=== PATIENT | female | born 1995 | race Caucasian/White ===

== ENCOUNTER 2020-09-11 01:57 | Inpatient (IN) | payer BC ==
[2020-09-11] MEDS ORDERED: Lidocaine 1% 50 ML MDV INJECT ONE (04:03)
[2020-09-11] MEDS ORDERED: Calcium Carbonate 500 MG Tab.Chew PO PRN (04:03)
[2020-09-11] MEDS ORDERED: Acetaminophen 325 MG Tab PO PRN (04:03)
[2020-09-11] MEDS ORDERED: Ondansetron 4 MG/2 ML SDV IVPUSH PRN (04:03)
[2020-09-11] MEDS ORDERED: Sodium Chloride 0.9% 10 ML Syringe FLUSH PRN (04:03)
[2020-09-11] MEDS ORDERED: Nalbuphine 10 MG/1 ML Vial IVPUSH PRN (04:03)
[2020-09-11] MEDS ORDERED: Oxytocin/Lactated Ringers 10 UNIT/1,000 ML BAG IV SCH ×2 (04:15)
--- NOTE | 2020-09-11 07:01 | PCM.LDHP ---
L&D History of Present Illness - General Date of Service: 09/11/20 Admit Problem/Dx: Patient Status Order with Admit Dx/Problem 09/11/20 01:59 Patient Status [ADT] Routine 09/11/20 04:04 Patient Status [ADT] Routine Admission Diagnosis/Problem Admission Diagnosis/Problem Active labor Source of Information: Patient History Limitations: Reports: No Limitations - History of Present Illness Introduction:: Patient is a 24 y/o at 39 1/7 wks. Patient presented overnight with worsening contractions. Made change from 3 to 4 cm. Now feels contractions are spacing somewhat. No other concerns - Related Data Allergies/Adverse Reactions: Allergies Allergy/AdvReac Type Severity Reaction Status Date / Time No Known Allergies Allergy Verified 09/11/20 02:00 Home Medications: Home Meds No122/Iron/Folic Acid [ Multi Tablet] 1 each PO DAILY 09/11/20 [History] Past Medical History Gastrointestinal History: Reports: Chronic Constipation, Other (See Below) Other Gastrointestinal History: Esophagitis, Rectal Fissures, Dysphagia MANAGER PHP History: Reports: : 1 Para: 0 LMP (Approximate): Musculoskeletal History: Reports: Other (See Below) Other Musculoskeletal History: Pelvic Floor Dysfunction, Congenital Hip Dysplasia Neurological History: Reports: Concussion Psychiatric History: Reports: Anxiety, Depression Dermatologic History: Reports: Other (See Below) Other Dermatologic History: Chronic Pruritis - Past Surgical History HEENT Surgical History: Reports: Adenoidectomy, Oral Surgery, Tonsillectomy GI Surgical History: Reports: EGD, Other (See Below) Other GI Surgeries/Procedures: Proctoplasty Stenosis, Sphincterotomy Social & Family History - Family History Family Medical History: No Pertinent Family History - Tobacco Use Tobacco Use Status *Q: Never Tobacco User Used Tobacco, but Quit: No - Alcohol Use Alcohol Use History: No - Recreational Drug Use Recreational Drug Use: No H&P Review of Systems - Review of Systems: Review Of Systems: See Below General: Reports: No Symptoms Pulmonary: Reports: No Symptoms Cardiovascular: Reports: No Symptoms Gastrointestinal: Reports: Abdominal Pain Genitourinary: Reports: No Symptoms Musculoskeletal: Reports: No Symptoms Psychiatric: Reports: No Symptoms L&D Exam - Exam Exam: See Below - Vital Signs Vital Signs: Last Vital Signs Temp 37.0 C 09/11/20 01:59 Pulse 80 09/11/20 01:59 Resp 16 09/11/20 01:59 BP 127/84 09/11/20 01:59 Pulse Ox 98 09/11/20 01:59 Weight: 75.659 kg - OB Specific Contraction Intensity: Moderate Movement: Active Heart Tones: Present Heart Tones per Min: 135 Heart Rate (FHR) Variability: Moderate (6-25 bmp) Presentation: Vertex - Florez Score Florez Score Cervix Position: Posterior Florez Score Consistency: Soft Florez Score Effacement: >80% Florez Score Dilation: 3-4 cm Florez Score Infant's Station: -2 Florez Score Total: 8 - Exam General: Alert, Oriented, Cooperative Lungs: Clear to Auscultation, Normal Respiratory Effort Cardiovascular: Regular Rate, Regular Rhythm GI/Abdominal Exam: Soft, Non-Tender Genitourinary: Normal external exam Extremities: Normal Inspection Skin: Warm, Dry, Intact - Patient Data Lab Results Last 24 hrs: Laboratory Results - last 24 hr 09/11/20 09/11/20 Range/Units 04:17 04:17 WBC 10.07 H (3.98-10.04) K/mm3 RBC 4.26 (3.98-5.22) M/mm3 Hgb 13.1 (11.2-15.7) gm/dl Hct 39.1 (34.1-44.9) % MCV 91.8 (79.4-94.8) fl MCH 30.8 (25.6-32.2) pg MCHC 33.5 (32.2-35.5) g/dl RDW Std Deviation 41.9 (36.4-46.3) fL Plt Count 168 L (182-369) K/mm3 MPV 11.7 (9.4-12.3) fl Neut % (Auto) 71.7 H (34.0-71.1) % Lymph % (Auto) 19.8 (19.3-51.7) % [place] % (Auto) 7.0 (4.7-12.5) % Eos % (Auto) 0.9 (0.7-5.8) Baso % (Auto) 0.2 (0.1-1.2) % Neut # (Auto) 7.23 H (1.56-6.13) K/mm3 Lymph # (Auto) 1.99 (1.18-3.74) K/mm3 [place] # (Auto) 0.70 H (0.24-0.36) K/mm3 Eos # (Auto) 0.09 (0.04-0.36) K/mm3 Baso # (Auto) 0.02 (0.01-0.08) K/mm3 Blood Type A POSITIVE Gel Antibody Screen Negative Result Diagrams: 09/11/20 04:17 - Problem List (1) 39 weeks gestation of SNOMED Code(s): 81105261 ICD Code: Z3A.39 - 39 WEEKS GESTATION OF Status: Acute Current Visit: Yes Problem List Initiated/Reviewed/Updated: Yes Orders Last 24hrs: Active Orders 24 hr Category Date Time Status Patient Status [ADT] Routine ADT 09/11/20 04:04 Active Activity as Tolerated [RC] PFP Care 09/11/20 04:03 Active Communication Order [RC] ASDIRECTED Care 09/11/20 04:03 Active Heart Tones [RC] ASDIRECTED Care 09/11/20 04:04 Active Notify Provider [RC] PFP Care 09/11/20 04:03 Active Notify Provider [RC] PRN Care 09/11/20 04:03 Active Peripheral IV Care [RC] . DIRECTED Care 09/11/20 04:04 Active Pump Management, Intrathecal [RC] ASDIRECTED Care 09/11/20 04:04 Active Urinary Catheter Assessment [RC] ASDIRECTED Care 09/11/20 04:03 Active Regular Diet [DIET] Diet 09/10/20 Dinner Active CORONAVIRUS COVID-19 CARLITO [MOLEC] Stat Lab 09/11/20 04:06 Ordered RAPID PLASMA REAGIN,RPR [CHEM] Stat Lab 09/11/20 04:17 Received Acetaminophen [TylenoL] Med 09/11/20 04:03 Active 650 mg PO Q4H PRN Calcium Carbonate [Tums] Med 09/11/20 04:03 Active 1,000 mg PO Q2H PRN Lactated Ringers [Ringers, Lactated] 1,000 ml Med 09/11/20 04:15 Active IV ASDIRECTED Nalbuphine [Nubain] Med 09/11/20 04:03 Active 10 mg IVPUSH Q2H PRN Ondansetron [Zofran] Med 09/11/20 04:03 Active 4 mg IVPUSH Q4H PRN Oxytocin/Lactated Ringers [Pitocin in LR 10 Units/1,000 Med 09/11/20 04:15 Act lidya ML] 10 unit in 1,000 ml IV .CONTINUOUS Oxytocin/Lactated Ringers [Pitocin in LR 10 Units/1,000 Med 09/11/20 04:15 Active ML] 10 unit in 1,000 ml IV TITRATE Sodium Chloride 0.9% [Saline Flush] Med 09/11/20 04:03 Active 10 ml FLUSH ASDIRECTED PRN Electronic Heart Tones Ext w TOCO [WOMSER] Ot 09/11/20 04:03 Ordered Routine Electronic Heart Tones Internal [WOMSER] Per Unit Ot 09/11/20 04:03 Ordered Routine Peripheral IV Insertion Adult [OM.PC] Routine Ot 09/11/20 04:03 Ordered Resuscitation Status Routine Resus Stat 09/11/20 01:59 Ordered Medication Orders Acetaminophen (Acetaminophen 325 Mg Tab) 650 mg PO Q4H PRN PRN Reason: Pain (Mild 1-3) and fever Calcium Carbonate/Glycine (Calcium Carbonate 500 Mg Tab.Chew) 1,000 mg PO Q2H PRN PRN Reason: Indigestion Lactated Ringer's (Ringers, Lactated) 1,000 mls @ 100 mls/hr IV ASDIRECTED FANTASMA Oxytocin/Lactated Ringer's (Pitocin In Lr 10 Units/1,000 Ml) 10 unit in 1,000 mls @ 12 mls/hr IV TITRATE FANTASMA; Protocol Oxytocin/Lactated Ringer's (Pitocin In Lr 10 Units/1,000 Ml) 10 unit in 1,000 mls @ 500 mls/hr IV .CONTINUOUS FANTASMA Nalbuphine HCl (Nalbuphine 10 Mg/1 Ml Vial) 10 mg IVPUSH Q2H PRN PRN Reason: Pain Ondansetron HCl (Ondansetron 4 Mg/2 Ml Sdv) 4 mg IVPUSH Q4H PRN PRN Reason: Nausea/Vomiting Sodium Chloride (Sodium Chloride 0.9% 10 Ml Syringe) 10 ml FLUSH ASDIRECTED PRN PRN Reason: Keep Vein Open Assessment/Plan Comment:: * Labs already done * GBS negative * Pain management per patient preference * Anticipate
[2020-09-11] MEDS: Lactated Ringers 1,000 ML IV SCH ×5 (13:20→21:53)
[2020-09-11] MEDS ORDERED: diphenhydrAMINE 50 MG/ML SDV IVPUSH PRN (14:41)
[2020-09-11] MEDS ORDERED: ePHEDrine 50 MG/ML SDV IVPUSH PRN (14:41)
[2020-09-11] MEDS: fentaNYL 100 MCG/2 ML SDV EPIDUR PRN ×2 (14:55→21:00)
[2020-09-11] MEDS: Bupivacaine/fentaNYL/NS 100 ML Bag EPIDUR PRN (14:56)
--- NOTE | 2020-09-11 15:15 | PCM.PREANE ---
Preanesthetic Assessment - Procedure Proposed Procedure: Labor epidural - Anesthesia/Transfusion/Family Hx Anesthesia History: Prior Anesthesia Without Reaction Family History of Anesthesia Reaction: No Transfusion History: No Prior Transfusion(s) Intubation History: Unknown - Review of Systems General: No Symptoms Pulmonary: No Symptoms Cardiovascular: No Symptoms Gastrointestinal: Abdominal Pain (uterine contractions), Other (No current dysphagia) Neurological: No Symptoms Other: Reports: Easy Bruising, Depression, Anxiety - Physical Assessment NPO Status Date: 09/11/20 NPO Status Time: 09:00 Vital Signs: Last Vital Signs Temp 98.6 F 09/11/20 01:59 Pulse 80 09/11/20 01:59 Resp 16 09/11/20 01:59 BP 127/84 09/11/20 01:59 Pulse Ox 98 09/11/20 01:59 Height: 1.57 m Weight: 75.659 kg ASA Class: 2 Mental Status: Alert & Oriented x3 Airway Class: Mallampati = 2 Dentition: Reports: Normal Dentition Thyro-Mental Finger Breadths: 3 Mouth Opening Finger Breadths: 3 ROM/Head Extension: Full Lungs: Clear to Auscultation, Normal Respiratory Effort Cardiovascular: Regular Rate, Regular Rhythm - Lab Values: Laboratory Last Values WBC 10.07 K/mm3 (3.98-10.04) H 09/11/20 04:17 RBC 4.26 M/mm3 (3.98-5.22) 09/11/20 04:17 Hgb 13.1 gm/dl (11.2-15.7) 09/11/20 04:17 Hct 39.1 % (34.1-44.9) 09/11/20 04:17 MCV 91.8 fl (79.4-94.8) 09/11/20 04:17 MCH 30.8 pg (25.6-32.2) 09/11/20 04:17 MCHC 33.5 g/dl (32.2-35.5) 09/11/20 04:17 RDW Std Deviation 41.9 fL (36.4-46.3) 09/11/20 04:17 Plt Count 168 K/mm3 (182-369) L 09/11/20 04:17 MPV 11.7 fl (9.4-12.3) 09/11/20 04:17 Neut % (Auto) 71.7 % (34.0-71.1) H 09/11/20 04:17 Lymph % (Auto) 19.8 % (19.3-51.7) 09/11/20 04:17 [place] % (Auto) 7.0 % (4.7-12.5) 09/11/20 04:17 Eos % (Auto) 0.9 (0.7-5.8) 09/11/20 04:17 Baso % (Auto) 0.2 % (0.1-1.2) 09/11/20 04:17 Neut # (Auto) 7.23 K/mm3 (1.56-6.13) H 09/11/20 04:17 Lymph # (Auto) 1.99 K/mm3 (1.18-3.74) 09/11/20 04:17 [place] # (Auto) 0.70 K/mm3 (0.24-0.36) H 09/11/20 04:17 Eos # (Auto) 0.09 K/mm3 (0.04-0.36) 09/11/20 04:17 Baso # (Auto) 0.02 K/mm3 (0.01-0.08) 09/11/20 04:17 Urine Color Yellow (Yellow) 09/11/20 12:17 Urine Appearance Clear (Clear) 09/11/20 12:17 Urine pH 7.0 (5.0-8.0) 09/11/20 12:17 Ur Specific [place] 1.020 (1.005-1.030) 09/11/20 12:17 Urine Protein Negative (Negative) 09/11/20 12:17 Urine Glucose (UA) Negative (Negative) 09/11/20 12:17 Urine Ketones Negative (Negative) 09/11/20 12:17 Urine Occult Blood Trace-lysed (Negative) H 09/11/20 12:17 Urine Nitrite Negative (Negative) 09/11/20 12:17 Urine Bilirubin Negative (Negative) 09/11/20 12:17 Urine Urobilinogen 0.2 (0.2-1.0) 09/11/20 12:17 Ur Leukocyte Esterase Negative (Negative) 09/11/20 12:17 Urine RBC 5-10 /hpf (0-5) H 09/11/20 12:17 Urine WBC 0-5 /hpf (0-5) 09/11/20 12:17 Ur Squamous Epith Cells 0-5 /hpf (0-5) 09/11/20 12:17 Urine Bacteria Few /hpf (FEW) 09/11/20 12:17 Urine Mucus Few /hpf (FEW) 09/11/20 12:17 SARS-CoV-2 RNA (CARLITO) Negative (NEGATIVE) 09/11/20 06:55 Blood Type A POSITIVE 09/11/20 04:17 Gel Antibody Screen Negative 09/11/20 04:17 Labs reviewed and acceptable to proceed - Allergies Allergies/Adverse Reactions: Allergies Allergy/AdvReac Type Severity Reaction Status Date / Time No Known Allergies Allergy Verified 09/11/20 02:00 - Blood Blood Available: Yes - Acknowledgements Anesthesia Type Planned: Epidural Pt an Appropriate Candidate for the Planned Anesthesia: Yes Alternatives and Risks of Anesthesia Discussed w Pt/Guardian: Yes Pt/Guardian Understands and Agrees with Anesthesia Plan: Yes PreAnesthesia Questionnaire Gastrointestinal History: Reports: Chronic Constipation, Other (See Below) Other Gastrointestinal History: Esophagitis, Rectal Fissures, Dysphagia Genitourinary History: Reports: UTI, Recurrent, Other (See Below) Other Genitourinary History: 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: Reports: Musculoskeletal History: Reports: Other (See Below) Other Musculoskeletal History: Pelvic Floor Dysfunction, Congenital Hip Dysplasia Neurological History: Reports: Concussion Other Neuro History: Insomnia, Seizures as a baby Psychiatric History: Reports: Anxiety, Depression Other Psychiatric History: Mood Disorder Endocrine/Metabolic History: Reports: Vitamin D Deficiency Dermatologic History: Reports: Other (See Below) Other Dermatologic History: Chronic Pruritis - Past Surgical History HEENT Surgical History: Reports: Adenoidectomy, Oral Surgery, Tonsillectomy GI Surgical History: Reports: EGD, Other (See Below) Other GI Surgeries/Procedures: Proctoplasty Stenosis, Sphincterotomy Dermatological Surgical History: Reports: Other (See Below) - SUBSTANCE USE Tobacco Use Status *Q: Never Tobacco User Tobacco Use Within Last Twelve Months: No Recreational Drug Use History: No - HOME MEDS Home Medications: Home Meds No122/Iron/Folic Acid [ Multi Tablet] 1 each PO DAILY 09/11/20 [History] - CURRENT (IN HOUSE) MEDS Current Meds: Current Medications Acetaminophen (Acetaminophen 325 Mg Tab) 650 mg PO Q4H PRN PRN Reason: Pain (Mild 1-3) and fever Calcium Carbonate/Glycine (Calcium Carbonate 500 Mg Tab.Chew) 1,000 mg PO Q2H PRN PRN Reason: Indigestion Diphenhydramine HCl (Diphenhydramine 50 Mg/Ml Sdv) 25 mg IVPUSH Q6H PRN PRN Reason: pruritis Ephedrine Sulfate (Ephedrine 50 Mg/Ml Sdv) 5 mg IVPUSH ASDIRECTED PRN PRN Reason: Hypotension Fentanyl (Fentanyl 100 Mcg/2 Ml Sdv) 100 mcg EPIDUR Q3H PRN PRN Reason: Pain Last Admin: 09/11/20 14:55 Dose: 100 mcg Documented by: Fentanyl/Bupivacaine HCl (Bupivacaine/Fentanyl/Ns 100 Ml Bag) 100 ml EPIDUR ASDIRECTED PRN PRN Reason: Pain Last Admin: 09/11/20 14:56 Dose: 100 ml Documented by: Lactated Ringer's (Ringers, Lactated) 1,000 mls @ 100 mls/hr IV ASDIRECTED FANTASMA Last Admin: 09/11/20 14:42 Dose: 100 mls/hr Documented by: Oxytocin/Lactated Ringer's (Pitocin In Lr 10 Units/1,000 Ml) 10 unit in 1,000 mls @ 12 mls/hr IV TITRATE FANTASMA; Protocol Oxytocin/Lactated Ringer's (Pitocin In Lr 10 Units/1,000 Ml) 10 unit in 1,000 mls @ 500 mls/hr IV .CONTINUOUS FANTASMA Nalbuphine HCl (Nalbuphine 10 Mg/1 Ml Vial) 10 mg IVPUSH Q2H PRN PRN Reason: Pain Ondansetron HCl (Ondansetron 4 Mg/2 Ml Sdv) 4 mg IVPUSH Q4H PRN PRN Reason: Nausea/Vomiting Sodium Chloride (Sodium Chloride 0.9% 10 Ml Syringe) 10 ml FLUSH ASDIRECTED PRN PRN Reason: Keep Vein Open Discontinued Medications Lidocaine HCl (Lidocaine 1% 50 Ml Mdv) 20 ml INJECT ONETIME ONE Stop: 09/11/20 04:04
--- NOTE | 2020-09-11 16:49 | PCM.PNLD ---
Labor Progress Note - VS & Meds Vital Signs: Last Vital Signs Temp 37.0 C 09/11/20 01:59 Pulse 80 09/11/20 01:59 Resp 16 09/11/20 01:59 BP 127/84 09/11/20 01:59 Pulse Ox 98 09/11/20 01:59 Active Medications: Current Medications Acetaminophen (Acetaminophen 325 Mg Tab) 650 mg PO Q4H PRN PRN Reason: Pain (Mild 1-3) and fever Calcium Carbonate/Glycine (Calcium Carbonate 500 Mg Tab.Chew) 1,000 mg PO Q2H PRN PRN Reason: Indigestion Diphenhydramine HCl (Diphenhydramine 50 Mg/Ml Sdv) 25 mg IVPUSH Q6H PRN PRN Reason: pruritis Ephedrine Sulfate (Ephedrine 50 Mg/Ml Sdv) 5 mg IVPUSH ASDIRECTED PRN PRN Reason: Hypotension Fentanyl (Fentanyl 100 Mcg/2 Ml Sdv) 100 mcg EPIDUR Q3H PRN PRN Reason: Pain Last Admin: 09/11/20 14:55 Dose: 100 mcg Documented by: Fentanyl/Bupivacaine HCl (Bupivacaine/Fentanyl/Ns 100 Ml Bag) 100 ml EPIDUR ASDIRECTED PRN PRN Reason: Pain Last Admin: 09/11/20 14:56 Dose: 100 ml Documented by: Lactated Ringer's (Ringers, Lactated) 1,000 mls @ 100 mls/hr IV ASDIRECTED FANTASMA Last Admin: 09/11/20 16:46 Dose: 100 mls/hr Documented by: Oxytocin/Lactated Ringer's (Pitocin In Lr 10 Units/1,000 Ml) 10 unit in 1,000 mls @ 12 mls/hr IV TITRATE FANTASMA; Protocol Last Titration: 09/11/20 16:46 Dose: 4 munits/min, 24 mls/hr Documented by: Oxytocin/Lactated Ringer's (Pitocin In Lr 10 Units/1,000 Ml) 10 unit in 1,000 mls @ 500 mls/hr IV .CONTINUOUS FANTASMA Nalbuphine HCl (Nalbuphine 10 Mg/1 Ml Vial) 10 mg IVPUSH Q2H PRN PRN Reason: Pain Ondansetron HCl (Ondansetron 4 Mg/2 Ml Sdv) 4 mg IVPUSH Q4H PRN PRN Reason: Nausea/Vomiting Sodium Chloride (Sodium Chloride 0.9% 10 Ml Syringe) 10 ml FLUSH ASDIRECTED PRN PRN Reason: Keep Vein Open Discontinued Medications Lidocaine HCl (Lidocaine 1% 50 Ml Mdv) 20 ml INJECT ONETIME ONE Stop: 09/11/20 04:04 - Uterine Contractions Uterine Monitoring Mode: External [place] Contraction Intensity: Moderate - Monitoring Monitor Mode: External Ultrasound Heart Rate (FHR) Baseline: 135 Heart Rate (FHR) Variability: Moderate (6-25 bmp) Accelerations: Present, 15x15 Decelerations: None Strip Review: Category I - Labor Progress (Free Text) Labor Progress: Doing well. Patient became tired with contractions and received epidural. Now being augmented with pitocin. Currently at 2. Continue to increase per protocol. Will reassess this PM.
--- NOTE | 2020-09-11 20:34 | PCM.PNLD ---
Labor Progress Note - VS & Meds Vital Signs: Last Vital Signs Temp 37.0 C 09/11/20 01:59 Pulse 80 09/11/20 01:59 Resp 16 09/11/20 01:59 BP 127/84 09/11/20 01:59 Pulse Ox 98 09/11/20 01:59 Active Medications: Current Medications Acetaminophen (Acetaminophen 325 Mg Tab) 650 mg PO Q4H PRN PRN Reason: Pain (Mild 1-3) and fever Last Admin: 09/11/20 18:23 Dose: 650 mg Documented by: Calcium Carbonate/Glycine (Calcium Carbonate 500 Mg Tab.Chew) 1,000 mg PO Q2H PRN PRN Reason: Indigestion Diphenhydramine HCl (Diphenhydramine 50 Mg/Ml Sdv) 25 mg IVPUSH Q6H PRN PRN Reason: pruritis Ephedrine Sulfate (Ephedrine 50 Mg/Ml Sdv) 5 mg IVPUSH ASDIRECTED PRN PRN Reason: Hypotension Fentanyl (Fentanyl 100 Mcg/2 Ml Sdv) 100 mcg EPIDUR Q3H PRN PRN Reason: Pain Last Admin: 09/11/20 14:55 Dose: 100 mcg Documented by: Fentanyl/Bupivacaine HCl (Bupivacaine/Fentanyl/Ns 100 Ml Bag) 100 ml EPIDUR ASDIRECTED PRN PRN Reason: Pain Last Admin: 09/11/20 14:56 Dose: 100 ml Documented by: Lactated Ringer's (Ringers, Lactated) 1,000 mls @ 100 mls/hr IV ASDIRECTED FANTASMA Last Admin: 09/11/20 16:46 Dose: 100 mls/hr Documented by: Oxytocin/Lactated Ringer's (Pitocin In Lr 10 Units/1,000 Ml) 10 unit in 1,000 mls @ 12 mls/hr IV TITRATE FANTASMA; Protocol Last Titration: 09/11/20 19:28 Dose: 10 munits/min, 60 mls/hr Documented by: Oxytocin/Lactated Ringer's (Pitocin In Lr 10 Units/1,000 Ml) 10 unit in 1,000 mls @ 500 mls/hr IV .CONTINUOUS FANTASMA Nalbuphine HCl (Nalbuphine 10 Mg/1 Ml Vial) 10 mg IVPUSH Q2H PRN PRN Reason: Pain Ondansetron HCl (Ondansetron 4 Mg/2 Ml Sdv) 4 mg IVPUSH Q4H PRN PRN Reason: Nausea/Vomiting Sodium Chloride (Sodium Chloride 0.9% 10 Ml Syringe) 10 ml FLUSH ASDIRECTED PRN PRN Reason: Keep Vein Open Discontinued Medications Lidocaine HCl (Lidocaine 1% 50 Ml Mdv) 20 ml INJECT ONETIME ONE Stop: 09/11/20 04:04 - Uterine Contractions Uterine Monitoring Mode: External [place] Contraction Intensity: Moderate - Monitoring Monitor Mode: External Ultrasound Heart Rate (FHR) Baseline: 130 Heart Rate (FHR) Variability: Moderate (6-25 bmp) Accelerations: Present, 15x15 Decelerations: None Strip Review: Category I - Vaginal Exam Dilation (cm): 5 Effacement (Percent): 80 Station: -1 Cervical Position: Midposition - Labor Progress (Free Text) Labor Progress: Doing well. Pitocin at 10. AROM performed with release of scant amount blood tinged fluid
[2020-09-12] MEDS: Bupivacaine/fentaNYL/NS 100 ML Bag EPIDUR PRN
--- NOTE | 2020-09-12 01:38 | PCM.DEL ---
L & D Note - General Info Date of Service: 09/12/20 - Delivery Note Labor: Augmented by ARM, Augmented by Oxytocin Delivery Outcome: Livebirth Infant Delivery Method: Spontaneous Vaginal Delivery-Single Delivery Mode: Spontaneous Presentation: Right Occiput Anterior (TRENT) Nuchal Cord: None Anesthesia Type: Epidural Amniotic Fluid Description: Clear Episiotomy Type: None Laceration: 2nd Degree Suture type: Vicryl Suture size: 2-0 Placenta: Intact, Spontaneous Cord: 3 Vessels Estimated Blood Loss: 200 Resuscitation Needed: Yes : Bulb Syringe, Stimulated, Warmed, [place] Used, Warmer Used Delivery Comments (Free Text/Narrative):: Patient found to be complete and began pushing. With maternal pushing effort head delivered from an TRENT presentation. No nuchal cord present. With gentle downward traction shoulders and body delivered. placed on maternal abdomen. Cord clamped and cut. Cord blood obtained. placenta allowed time to separate and expelled intact. Inspection of perineum showed a 2nd degree which was repaired with a 2-0 Vicryl in the typical fashion - General Info Date of Service: 09/12/20 - Patient Data Vitals - Most Recent: Last Vital Signs Temp 37.0 C 09/11/20 01:59 Pulse 80 09/11/20 01:59 Resp 16 09/11/20 01:59 BP 127/84 09/11/20 01:59 Pulse Ox 98 09/11/20 01:59 Weight - Most Recent: 75.659 kg I&O - Last 24 Hours: Intake & Output 09/11/20 09/11/20 09/12/20 14:59 22:59 06:59 Intake Total 1000 1999 Output Total Balance 1000 2015 - Exam Urinary Catheter Total Time: 0Days 0Hours - Problem List & Annotations (1) 39 weeks gestation of SNOMED Code(s): 44651796 Code(s): Z3A.39 - 39 WEEKS GESTATION OF Status: Acute Current Visit: Yes (2) Vaginal delivery SNOMED Code(s): 833398834 Code(s): O80 - ENCOUNTER FOR FULL-TERM UNCOMPLICATED DELIVERY Status: Acute Current Visit: Yes - Problem List Review Problem List Initiated/Reviewed/Updated: Yes - Assessment Assessment:: PPD#0 - Plan Plan:: * Routine cares * Breast feeding * Discharge home in 1-2 days
[2020-09-12] MEDS ORDERED: Benzocaine/Menthol 20%-0.5% Spray 56 GM Canister TOP PRN (02:38)
[2020-09-12] MEDS ORDERED: Witch Hazel Medicated Pads 40/Jar TOP PRN (02:38)
[2020-09-12] MEDS: Docusate Sodium 100 MG Cap PO PRN (03:16)
[2020-09-12] MEDS: Ibuprofen 600 MG Tab PO PRN ×3 (03:16→16:46)
[2020-09-12] MEDS ORDERED: Lidocaine 1.5% with EPINEPHrine 1:200,000 5 ML Amp ONE (04:00)
[2020-09-12] MEDS ORDERED: Bupivacaine 0.25% 10 ML SDV ONE (04:00)
--- NOTE | 2020-09-12 08:15 | PCM48HPAN ---
Post Anesthesia Note - EVALUATION WITHIN 48HRS OF ANESTHETIC Vital Signs in Normal Range: Yes Patient Participated in Evaluation: Yes Respiratory Function Stable: Yes Airway Patent: Yes Cardiovascular Function Stable: Yes Hydration Status Stable: Yes Pain Control Satisfactory: Yes Nausea and Vomiting Control Satisfactory: Yes Mental Status Recovered: Yes Vital Signs: Last Vital Signs Temp 37.0 C 09/11/20 01:59 Pulse 80 09/11/20 01:59 Resp 16 09/11/20 01:59 BP 127/84 09/11/20 01:59 Pulse Ox 98 09/11/20 01:59
[2020-09-12] MEDS: Acetaminophen 325 MG Tab PO PRN (20:49)
--- NOTE | 2020-09-13 06:50 | PCM.PNPP ---
- General Info Date of Service: 09/13/20 Functional Status: Reports: Pain Controlled, Tolerating Diet, Ambulating, Urinating - Review of Systems General: Reports: No Symptoms Pulmonary: Reports: No Symptoms Cardiovascular: Reports: No Symptoms Gastrointestinal: Reports: No Symptoms Genitourinary: Reports: No Symptoms Musculoskeletal: Reports: No Symptoms Neurological: Reports: No Symptoms - General Info Date of Service: 09/13/20 - Patient Data Vital Signs - Most Recent: Last Vital Signs Temp 36.4 C 09/13/20 03:35 Pulse 54 L 09/13/20 03:35 Resp 16 09/13/20 03:35 BP 117/91 H 09/13/20 03:35 Pulse Ox 97 09/13/20 03:35 Weight - Most Recent: 75.659 kg I&O - Last 24 Hours: Intake & Output 09/12/20 09/12/20 09/13/20 14:59 22:59 06:59 Intake Total 60 Output Total Balance 76 Med Orders - Current: Current Medications Acetaminophen (Acetaminophen 325 Mg Tab) 650 mg PO Q4H PRN PRN Reason: mild pain or fever Last Admin: 09/12/20 20:49 Dose: 650 mg Documented by: Benzocaine/Menthol (Benzocaine/Menthol 20%-0.5% [place] 56 Gm Canister) 0 gm TOP ASDIRECTED PRN PRN Reason: Perineal Comfort Measure Last Admin: 09/12/20 03:17 Dose: 1 canister Documented by: Docusate Sodium (Docusate Sodium 100 Mg Cap) 100 mg PO BID PRN PRN Reason: Constipation Last Admin: 09/12/20 03:16 Dose: 100 mg Documented by: Ibuprofen (Ibuprofen 600 Mg Tab) 600 mg PO Q6H PRN PRN Reason: Mild pain or fever Last Admin: 09/12/20 16:46 Dose: 600 mg Documented by: Cristin Toroel (Witch Lianne Medicated Pads 40/Jar) 1 pad TOP ASDIRECTED PRN PRN Reason: Perineal Comfort Measure Last Admin: 09/12/20 03:17 Dose: 1 tub Documented by: Discontinued Medications Acetaminophen (Acetaminophen 325 Mg Tab) 650 mg PO Q4H PRN PRN Reason: Pain (Mild 1-3) and fever Last Admin: 09/11/20 18:23 Dose: 650 mg Documented by: Bupivacaine HCl (Bupivacaine 0.25% 10 Ml Sdv) 20 ml .ROUTE .STK-MED ONE Stop: 09/12/20 04:01 Calcium Carbonate/Glycine (Calcium Carbonate 500 Mg Tab.Chew) 1,000 mg PO Q2H PRN PRN Reason: Indigestion Diphenhydramine HCl (Diphenhydramine 50 Mg/Ml Sdv) 25 mg IVPUSH Q6H PRN PRN Reason: pruritis Ephedrine Sulfate (Ephedrine 50 Mg/Ml Sdv) 5 mg IVPUSH ASDIRECTED PRN PRN Reason: Hypotension Fentanyl (Fentanyl 100 Mcg/2 Ml Sdv) 100 mcg EPIDUR Q3H PRN PRN Reason: Pain Last Admin: 09/11/20 21:00 Dose: 100 mcg Documented by: Fentanyl/Bupivacaine HCl (Bupivacaine/Fentanyl/Ns 100 Ml Bag) 100 ml EPIDUR ASDIRECTED PRN PRN Reason: Pain Last Admin: 09/12/20 00:00 Dose: 100 ml Documented by: Lactated Ringer's (Ringers, Lactated) 1,000 mls @ 100 mls/hr IV ASDIRECTED FANTASMA Last Admin: 09/11/20 21:53 Dose: 100 mls/hr Documented by: Oxytocin/Lactated Ringer's (Pitocin In Lr 10 Units/1,000 Ml) 10 unit in 1,000 mls @ 12 mls/hr IV TITRATE FANTASMA; Protocol Last Titration: 09/11/20 19:28 Dose: 10 munits/min, 60 mls/hr Documented by: Oxytocin/Lactated Ringer's (Pitocin In Lr 10 Units/1,000 Ml) 10 unit in 1,000 mls @ 500 mls/hr IV .CONTINUOUS FANTASMA Last Admin: 09/12/20 02:32 Dose: 500 mls/hr Documented by: Lidocaine HCl (Lidocaine 1% 50 Ml Mdv) 20 ml INJECT ONETIME ONE Stop: 09/11/20 04:04 Last Admin: 09/12/20 02:33 Dose: Not Given Documented by: Lidocaine/Epinephrine (Lidocaine 1.5% With Epinephrine 1:200,000 5 Ml Amp) 5 ml .ROUTE .STK-MED ONE Stop: 09/12/20 04:01 Nalbuphine HCl (Nalbuphine 10 Mg/1 Ml Vial) 10 mg IVPUSH Q2H PRN PRN Reason: Pain Ondansetron HCl (Ondansetron 4 Mg/2 Ml Sdv) 4 mg IVPUSH Q4H PRN PRN Reason: Nausea/Vomiting Sodium Chloride (Sodium Chloride 0.9% 10 Ml Syringe) 10 ml FLUSH ASDIRECTED PRN PRN Reason: Keep Vein Open - Interaction Disposition, : in Room with Family Infant Interaction: Holding Infant Feeding: Attempted ; Nursed Fair/Poor Support Person: Significant Other - Recovery Exam Fundal Tone: Firm Fundal Level: 1 Fingerbreadths Below Umbilicus Fundal Placement: Midline Lochia Amount: Small Lochia Color: Rubra/Red Perineum Description: Other (see below) Other Perinuem Description: 1st degree laceration with repair Episiotomy/Laceration: Approximated Bladder Status: Voiding Urinary Elimination: Voided - Exam General: Alert, Oriented, Cooperative GI/Abdominal Exam: Soft, Non-Tender Extremities: Normal Inspection - Problem List & Annotations (1) 39 weeks gestation of SNOMED Code(s): 64561969 Code(s): Z3A.39 - 39 WEEKS GESTATION OF Status: Acute Current Visit: Yes (2) Vaginal delivery SNOMED Code(s): 385016132 Code(s): O80 - ENCOUNTER FOR FULL-TERM UNCOMPLICATED DELIVERY Status: Acute Current Visit: Yes - Problem List Review Problem List Initiated/Reviewed/Updated: Yes - My Orders Last 24 Hours: My Active Orders 09/12/20 Breakfast Regular Diet [DIET] 09/13/20 02:38 Heat Therapy [OM.PC] PRN - Assessment Assessment:: PPD#1 - Plan Plan:: * Routine cares * Continue to work on breast feeding. Saw rn lactation consultant yesterday. * Discharge home tomorrow
[2020-09-13] MEDS: Docusate Sodium 100 MG Cap PO PRN ×2 (09:52→22:08)
[2020-09-13] MEDS: Ibuprofen 600 MG Tab PO PRN (09:52)
[2020-09-13] MEDS: Acetaminophen 325 MG Tab PO PRN (22:06)
--- NOTE | 2020-09-14 01:01 | PCM.DCSUM1 ---
Discharge Summary - Discharge Data Discharge Date: 09/14/20 Discharge Disposition: Home, Self-Care 01 Condition: Good - Referral to Home Health Primary Care Physician: Millie Patel MD - Discharge Diagnosis/Problem(s) (1) 39 weeks gestation of SNOMED Code(s): 02315958 ICD Code: Z3A.39 - 39 WEEKS GESTATION OF Status: Acute Current Visit: Yes (2) Vaginal delivery SNOMED Code(s): 732486868 ICD Code: O80 - ENCOUNTER FOR FULL-TERM UNCOMPLICATED DELIVERY Status: Acute Current Visit: Yes - Patient Summary/Data Complications: None Consults: None Recommended Follow-up Testing/Procedures: Follow up in 3 weeks for check Hospital Course: 24 y/o at 39 1/7 wks presented in early labor. Was augmented with pitocin/AROM. Progressed well to complete dilation and underwent an uncomplicated . See delivery note. did well and was discharged home on PPD#2 - Patient Instructions Diet: Regular Diet as Tolerated Activity: As Tolerated Activity, Other: pelvic rest for 6 weeeks Driving: May Drive Today Showering/Bathing: May Shower Notify Provider of: Fever, Increased Pain, Swelling and Redness, Drainage, Nausea and/or Vomiting - Discharge Plan *PRESCRIPTION DRUG MONITORING PROGRAM REVIEWED*: No *COPY OF PRESCRIPTION DRUG MONITORING REPORT IN PATIENT SAMEER: No Home Medications: Home Meds No122/Iron/Folic Acid [ Multi Tablet] 1 each PO DAILY 09/11/20 [History] Docusate Sodium [Colace] 100 mg PO BID PRN cap 09/13/20 [Rx] Ibuprofen [Motrin] 600 mg PO Q6H PRN tablet 09/13/20 [Rx] Patient Handouts: and Tongue Tie, Care After Vaginal Delivery Referrals: Millie Patel MD [Primary Care Provider] - (3 weeks for check) - Discharge Summary/Plan Comment DC Time >30 min.: No - Patient Data Vitals - Most Recent: Last Vital Signs Temp 36.7 C 09/13/20 19:39 Pulse 64 09/13/20 19:39 Resp 16 09/13/20 19:39 BP 120/66 09/13/20 19:39 Pulse Ox 100 09/13/20 19:39 Weight - Most Recent: 75.659 kg I&O - Last 24 hours: Intake & Output 09/13/20 09/13/20 09/14/20 14:59 22:59 06:59 Intake Total 60 0 Balance 60 0 Med Orders - Current: Current Medications Acetaminophen (Acetaminophen 325 Mg Tab) 650 mg PO Q4H PRN PRN Reason: mild pain or fever Last Admin: 09/13/20 22:06 Dose: 650 mg Documented by: Benzocaine/Menthol (Benzocaine/Menthol 20%-0.5% [place] 56 Gm Canister) 0 gm TOP ASDIRECTED PRN PRN Reason: Perineal Comfort Measure Last Admin: 09/12/20 03:17 Dose: 1 canister Documented by: Docusate Sodium (Docusate Sodium 100 Mg Cap) 100 mg PO BID PRN PRN Reason: Constipation Last Admin: 09/13/20 22:08 Dose: 100 mg Documented by: Ibuprofen (Ibuprofen 600 Mg Tab) 600 mg PO Q6H PRN PRN Reason: Mild pain or fever Last Admin: 09/13/20 09:52 Dose: 600 mg Documented by: Cristin Abdalla (Cristin Abdalla Medicated Pads 40/Jar) 1 pad TOP ASDIRECTED PRN PRN Reason: Perineal Comfort Measure Last Admin: 09/12/20 03:17 Dose: 1 tub Documented by: Discontinued Medications Acetaminophen (Acetaminophen 325 Mg Tab) 650 mg PO Q4H PRN PRN Reason: Pain (Mild 1-3) and fever Last Admin: 09/11/20 18:23 Dose: 650 mg Documented by: Bupivacaine HCl (Bupivacaine 0.25% 10 Ml Sdv) 20 ml .ROUTE .STK-MED ONE Stop: 09/12/20 04:01 Calcium Carbonate/Glycine (Calcium Carbonate 500 Mg Tab.Chew) 1,000 mg PO Q2H PRN PRN Reason: Indigestion Diphenhydramine HCl (Diphenhydramine 50 Mg/Ml Sdv) 25 mg IVPUSH Q6H PRN PRN Reason: pruritis Ephedrine Sulfate (Ephedrine 50 Mg/Ml Sdv) 5 mg IVPUSH ASDIRECTED PRN PRN Reason: Hypotension Fentanyl (Fentanyl 100 Mcg/2 Ml Sdv) 100 mcg EPIDUR Q3H PRN PRN Reason: Pain Last Admin: 09/11/20 21:00 Dose: 100 mcg Documented by: Fentanyl/Bupivacaine HCl (Bupivacaine/Fentanyl/Ns 100 Ml Bag) 100 ml EPIDUR ASDIRECTED PRN PRN Reason: Pain Last Admin: 09/12/20 00:00 Dose: 100 ml Documented by: Lactated Ringer's (Ringers, Lactated) 1,000 mls @ 100 mls/hr IV ASDIRECTED FANTASMA Last Admin: 09/11/20 21:53 Dose: 100 mls/hr Documented by: Oxytocin/Lactated Ringer's (Pitocin In Lr 10 Units/1,000 Ml) 10 unit in 1,000 mls @ 12 mls/hr IV TITRATE FANTASMA; Protocol Last Titration: 09/11/20 19:28 Dose: 10 munits/min, 60 mls/hr Documented by: Oxytocin/Lactated Ringer's (Pitocin In Lr 10 Units/1,000 Ml) 10 unit in 1,000 mls @ 500 mls/hr IV .CONTINUOUS FANTASMA Last Admin: 09/12/20 02:32 Dose: 500 mls/hr Documented by: Lidocaine HCl (Lidocaine 1% 50 Ml Mdv) 20 ml INJECT ONETIME ONE Stop: 09/11/20 04:04 Last Admin: 09/12/20 02:33 Dose: Not Given Documented by: Lidocaine/Epinephrine (Lidocaine 1.5% With Epinephrine 1:200,000 5 Ml Amp) 5 ml .ROUTE .[facility]-MED ONE Stop: 09/12/20 04:01 Nalbuphine HCl (Nalbuphine 10 Mg/1 Ml Vial) 10 mg IVPUSH Q2H PRN PRN Reason: Pain Ondansetron HCl (Ondansetron 4 Mg/2 Ml Sdv) 4 mg IVPUSH Q4H PRN PRN Reason: Nausea/Vomiting Sodium Chloride (Sodium Chloride 0.9% 10 Ml Syringe) 10 ml FLUSH ASDIRECTED PRN PRN Reason: Keep Vein Open
[2020-09-14] MEDS: Acetaminophen 325 MG Tab PO PRN (08:19)
== END 2020-09-14 11:55 | disposition home or self-care (01) | DRG 560 ==
LOC: JD.OB 01:57 → JD.OBCHECK 01:57 → JD.OB 04:04 → OBSVTOIN 09-12 01:13
PROVIDERS: ADMIT Obstetrics & Gynecology; ATTEND Obstetrics & Gynecology
PROC: 10E0XZZ Delivery of Products of Conception, External Approach (ICD-10-PCS; principal; 2020-09-12)
PROC: 10907ZC Drainage of Amniotic Fluid, Therapeutic from Products of Conception, Via Natural or Artificial Opening (ICD-10-PCS; 2020-09-12)
PROC: 0KQM0ZZ Repair Perineum Muscle, Open Approach (ICD-10-PCS; 2020-09-12)
PROC: 3E0R3BZ Introduction of Anesthetic Agent into Spinal Canal, Percutaneous Approach (ICD-10-PCS; 2020-09-12)
DX: O70.1 Second degree perineal laceration during delivery (principal); Z37.0 Single live birth; Z3A.39 39 weeks gestation of pregnancy; Z20.822 Contact with and (suspected) exposure to COVID-19
CPT/HCPCS: 01967; 36415; 51702; 59025; 59409; 81001; 85025; 86592; 86850; 86900; 86901; A9270-GY; J2590; J3010; J3490; J7120; U0002

== ENCOUNTER 2022-04-01 20:09 | Inpatient (IN) | payer BC, OTHER ==
[2022-04-01] MEDS ORDERED: Sodium Chloride 0.9% 10 ML Syringe FLUSH PRN (21:10)
[2022-04-01] MEDS ORDERED: Nalbuphine 10 MG/0.5 ML Syringe IVPUSH PRN (21:10)
[2022-04-01] MEDS ORDERED: Ondansetron 4 MG/2 ML SDV IVPUSH PRN (21:10)
[2022-04-01] MEDS ORDERED: Oxytocin/Lactated Ringers 10 UNIT/1,000 ML BAG IV SCH (21:15)
[2022-04-01] MEDS ORDERED: ePHEDrine 50 MG/ML SDV IVPUSH PRN (21:39)
[2022-04-01] MEDS ORDERED: diphenhydrAMINE 50 MG/ML SDV IVPUSH PRN (21:39)
[2022-04-01] MEDS ORDERED: Dexmedetomidine 200 MCG/2 ML SDV ONE (22:42)
[2022-04-01] MEDS: Lactated Ringers 1,000 ML IV SCH ×3 (23:24→23:27)
[2022-04-01] MEDS: fentaNYL 100 MCG/2 ML SDV EPIDUR PRN (23:28)
[2022-04-01] MEDS: Bupivacaine/fentaNYL/NS 100 ML Bag EPIDUR PRN (23:30)
[2022-04-02] MEDS ORDERED: Lidocaine 1% 10 ML MDV ONE
[2022-04-02] MEDS ORDERED: Phenylephrine HCl In 0.9% NaCl 1 MG/10 ML Vial ONE
[2022-04-02] MEDS: Lactated Ringers 1,000 ML IV SCH (04:33)
[2022-04-02] MEDS: fentaNYL 100 MCG/2 ML SDV EPIDUR PRN (05:04)
[2022-04-02] MEDS: Bupivacaine/fentaNYL/NS 100 ML Bag EPIDUR PRN (05:35)
[2022-04-02] MEDS ORDERED: Oxytocin/Lactated Ringers 10 UNIT/1,000 ML BAG IV SCH (08:45)
[2022-04-02] MEDS ORDERED: Sodium Chloride 0.9% 10 ML Syringe FLUSH SCH (09:00)
[2022-04-02] MEDS ORDERED: Calcium Carbonate 500 MG Tab.Chew PO PRN (09:39)
[2022-04-02] MEDS ORDERED: Witch Hazel Medicated Pads 40/Jar TOP PRN (14:37)
[2022-04-02] MEDS ORDERED: Benzocaine/Menthol 20%-0.5% Spray 78 GM Cannister TOP PRN (14:37)
[2022-04-02] MEDS ORDERED: Acetaminophen 325 MG Tab PO PRN (14:37)
[2022-04-02] MEDS ORDERED: Docusate Sodium 100 MG Cap PO PRN (18:27)
[2022-04-02] MEDS: Ibuprofen 600 MG Tab PO PRN (18:33)
[2022-04-03] MEDS: Ibuprofen 600 MG Tab PO PRN (03:45)
== END 2022-04-03 11:00 | disposition home or self-care (01) | DRG 807 ==
LOC: JD.OBCHECK 20:09 → JD.OB 20:13 → JD.OBCHECK 21:09 → JD.OB 21:10 → OBSVTOIN 04-02 11:02 → JD.OB 04-02 11:03
PROVIDERS: ADMIT Obstetrics & Gynecology; ATTEND Obstetrics & Gynecology
PROC: 10E0XZZ Delivery of Products of Conception, External Approach (ICD-10-PCS; principal; 2022-04-02)
PROC: 0KQM0ZZ Repair Perineum Muscle, Open Approach (ICD-10-PCS; 2022-04-02)
PROC: 10907ZC Drainage of Amniotic Fluid, Therapeutic from Products of Conception, Via Natural or Artificial Opening (ICD-10-PCS; 2022-04-02)
PROC: 3E0R3BZ Introduction of Anesthetic Agent into Spinal Canal, Percutaneous Approach (ICD-10-PCS; 2022-04-02)
PROC: 00HU33Z Insertion of Infusion Device into Spinal Canal, Percutaneous Approach (ICD-10-PCS; 2022-04-02)
DX: O99.62 Diseases of the digestive system complicating childbirth (principal); Z37.0 Single live birth; K59.09 Other constipation; Z3A.39 39 weeks gestation of pregnancy; O70.1 Second degree perineal laceration during delivery
CPT/HCPCS: 36415; 51702; 59025; 59409; 85027; 86592; 86850; 86900; 86901; A9270-GY; J2590; J3010; J7120

== ENCOUNTER 2024-01-15 00:57 | Inpatient (IN) | payer OTHER ==
[~2024-01-15 00:57] MED LIST: Bupivacaine 0.25% 10 ML SDV ONE
[2024-01-15] MEDS ORDERED: Ondansetron 4 MG/2 ML SDV IVPUSH PRN (01:09)
[2024-01-15] MEDS ORDERED: Lidocaine 1% 50 ML MDV INJECT PRN (01:09)
[2024-01-15] MEDS ORDERED: Oxytocin/0.9 % Sodium Chloride 30 UNIT/500 ML BAG IV SCH (01:15)
[2024-01-15 01:29] LABS: BASOPHILS PERCENT AUTO 0.3 % (0.0-1.0); EOSINOPHILS ABSOLUTE AUTO 0.1 K/mm3 (0.0-0.4); EOSINOPHILS PERCENT AUTO 1.3 % (0.0-6.0); HEMATOCRIT 39.1 % (37.0-47.0); HEMOGLOBIN 13.5 gm/dl (12.0-16.0); IMMATURE GRAN ABSOLUTE AUTO 0.07 K/mm3 (0.00-0.05); IMMATURE GRAN PERCENT AUTO 0.7 % (0.0-0.4); LYMPHOCYTES ABSOLUTE AUTO 2.4 K/mm3 (1.0-4.8); LYMPHOCYTES PERCENT AUTO 24.8 % (24.0-44.0); MEAN CORPUSCULAR HEMOGLOBIN 30.5 pg (28.0-32.0); MEAN CORPUSCULAR HGB CONC 34.5 g/dl (32.0-36.0); MEAN CORPUSCULAR VOLUME 88.3 fl (83.0-99.0); MEAN PLATELET VOLUME 11.2 fl (9.4-12.3); MONOCYTES ABSOLUTE AUTO 0.8 K/mm3 (0.0-0.8); MONOCYTES PERCENT AUTO 7.7 % (0.0-8.0); NEUTROPHILS ABSOLUTE AUTO 6.4 K/mm3 (1.8-7.7); NEUTROPHILS PERCENT AUTO 65.2 % (41.0-71.0); PLATELET COUNT,PLT 196 K/mm3 (150-400); RED BLOOD CELL COUNT 4.43 M/mm3 (4.10-5.30); WHITE BLOOD CELL COUNT,WBC 9.82 K/mm3 (3.9-11.3)
[2024-01-15] MEDS: Lactated Ringers 1,000 ML IV SCH (01:48)
[2024-01-15] MEDS ORDERED: diphenhydrAMINE 50 MG/ML SDV IVPUSH PRN (02:16)
[2024-01-15] MEDS ORDERED: ePHEDrine 50 MG/ML SDV IVPUSH PRN (02:16)
[2024-01-15] MEDS: Bupivacaine/fentaNYL/NS 100 ML Bag EPIDUR PRN (02:26)
[2024-01-15] MEDS: fentaNYL 100 MCG/2 ML SDV EPIDUR PRN (02:26)
[2024-01-15] MEDS: Calcium Carbonate 500 MG Tab.Chew PO PRN (04:08)
[2024-01-15] MEDS: Oxytocin/0.9 % Sodium Chloride 30 UNIT/500 ML BAG IV SCH (05:26)
[2024-01-15] MEDS ORDERED: Docusate Sodium 100 MG Cap PO PRN (09:01)
[2024-01-15] MEDS: Benzocaine/Menthol 20%-0.5% Spray 78 GM Cannister TOP PRN (11:28)
[2024-01-15] MEDS: Witch Hazel Medicated Pads 40/Jar TOP PRN (11:28)
[2024-01-15] MEDS: Ibuprofen 600 MG Tab PO SCH (18:19)
[2024-01-15] MEDS: Polyethylene Glycol 3350 Powder 17 GM Packet PO SCH (18:20)
[2024-01-15] MEDS: Acetaminophen 325 MG Tab PO PRN (23:59)
== END 2024-01-16 10:55 | disposition home or self-care (01) | DRG 807 ==
LOC: JD.OBCHECK 00:57 → JD.OB 01:04 → JD.OBCHECK 01:17 → OBSVTOIN 07:43 → JD.OB 07:43
PROVIDERS: ADMIT Family Medicine; ATTEND Family Medicine
PROC: 10E0XZZ Delivery of Products of Conception, External Approach (ICD-10-PCS; principal; 2024-01-15)
PROC: 10907ZC Drainage of Amniotic Fluid, Therapeutic from Products of Conception, Via Natural or Artificial Opening (ICD-10-PCS; 2024-01-15)
PROC: 0HQ9XZZ Repair Perineum Skin, External Approach (ICD-10-PCS; 2024-01-15)
PROC: 3E0R3BZ Introduction of Anesthetic Agent into Spinal Canal, Percutaneous Approach (ICD-10-PCS; 2024-01-15)
PROC: 00HU33Z Insertion of Infusion Device into Spinal Canal, Percutaneous Approach (ICD-10-PCS; 2024-01-15)
DX: O99.62 Diseases of the digestive system complicating childbirth (principal); Z37.0 Single live birth; O70.0 First degree perineal laceration during delivery; K59.09 Other constipation; Z3A.39 39 weeks gestation of pregnancy; Z90.89 Acquired absence of other organs; Z98.890 Other specified postprocedural states
CPT/HCPCS: 36415; 51701; 59025; 59409; 85025; 86592; 86850; 86900; 86901; A9270-GY; J0665; J3010; J3490; J7120; J7999

== ENCOUNTER 2024-05-20 06:44 | Day surgery (SDC) | payer OTHER ==
[~2024-05-20 06:44] MED LIST changes: -Bupivacaine 0.25% 10 ML SDV ONE; +HYDROmorphone 0.5 MG/0.5 ML Syringe IVPUSH PRN; +Ondansetron 4 MG/2 ML SDV IVPUSH PRN; +Sodium Chloride 0.9% 10 ML Syringe FLUSH PRN; +Sodium Chloride 0.9% 10 ML Syringe FLUSH SCH; +fentaNYL 100 MCG/2 ML SDV IVPUSH PRN
[2024-05-20] MEDS ORDERED: Propofol 200 MG/20 ML SDV ONE (06:57)
[2024-05-20] MEDS ORDERED: Lidocaine 2% 5 ML SDV ONE (07:00)
[2024-05-20] MEDS: Lactated Ringers 1,000 ML IV SCH (07:05)
[2024-05-20] MEDS ORDERED: Ondansetron 4 MG/2 ML SDV ONE (07:06)
== END 2024-05-20 08:35 | disposition home or self-care (01) ==
LOC: JD.SDS 06:44
PROVIDERS: ATTEND Surgery
DX: K29.50 Unspecified chronic gastritis without bleeding (principal); K20.0 Eosinophilic esophagitis; K29.80 Duodenitis without bleeding; R13.10 Dysphagia, unspecified; F32.A Depression, unspecified; F41.9 Anxiety disorder, unspecified
CPT/HCPCS: 43239; J2405; J2704; J7120; 00731; J3490